=== PATIENT | female | born 1945 | race Caucasian/White ===

== ENCOUNTER 2018-04-13 12:30 | Inpatient (IN) | payer MEDICARE, BC ==
[~2018-04-13] VITALS: Ht 165.1 cm; Wt 65.0 kg
[~2018-04-13 12:30] MED LIST: ACAR50TA3 PO; ALBU18HF2 INH; BACL10TA PO; EST1T PO; FLUC100T9 PO; HYDR-4383 PO; IPRA3AMP31 IH; MAGN400C PO; OMEP-50 PO; PRED10TA PO; SERT100T PO; SIMV20TA5 PO; SPIR25TA5 PO; SYN0.088T PO; THEO300T22 PO; TIOT4MIS2 PO; TRAZ150T78 PO
[2018-04-13 13:12] LABS: BASOPHILS % (AUTO) 0.4 % (0-1); EOSINOPHILS # (AUTO) 0.1 X10'3 (0-0.9); EOSINOPHILS % (AUTO) 1.7 % (0-6); HEMATOCRIT 38.6 % (35.0-45.0); HEMOGLOBIN 12.8 g/dl (12.0-16.0); LYMPHOCYTES # (AUTO) 2.2 X10'3 (1.1-4.8); LYMPHOCYTES % (AUTO) 28.5 % (21-51); MEAN CORPUSCULAR HEMOGLOBIN 29.4 PG (27.0-31.0); MEAN CORPUSCULAR VOLUME 88.9 FL (78-98); MEAN PLATELET VOLUME 8.8 FL (7.4-10.4); MONOCYTES # (AUTO) 0.5 X10'3 (0-0.9); NEUTROPHILS # (AUTO) 4.9 X10'3 (1.8-7.7); NEUTROPHILS % (AUTO) 63.4 % (42-75); PLATELET COUNT 223 X10'3 (140-440); RED BLOOD COUNT 4.35 X10'6 (4.20-5.60); RED CELL DISTRIBUTION WIDTH 15.1 % (11.5-14.5); WHITE BLOOD COUNT 7.7 X10'3 (4.5-11.0)
[2018-04-13] MEDS ORDERED: ondansetron/PF 4mg/2ml inj IV ONE (13:20)
[2018-04-13] MEDS ORDERED: morphine 4 MG/ML inj SYRINge IV ONE (13:20)
[2018-04-13 13:32] LABS: ALANINE AMINOTRANSFERASE 19 U/L (12-78); ALBUMIN 3.3 G/DL (3.4-5.0); ALKALINE PHOSPHATASE 90 IU/L (46-116); ANION GAP 7 (8-16); ASPARTATE AMINO TRANSFERASE 19 U/L (10-37); BILIRUBIN,TOTAL 0.5 MG/DL (0.1-1.0); BLOOD UREA NITROGEN 18 MG/DL (7-18); BUN/CREATININE RATIO 20.2 (6.6-38.0); CALCIUM 8.7 MG/DL (8.5-10.1); CHLORIDE 101 MMOL/L (99-107); CREATININE 0.89 MG/DL (0.40-0.90); GLUCOSE 113 MG/DL (70-104); SODIUM 139 MMOL/L (135-145); TOTAL CARBON DIOXIDE 31.3 MMOL/L (24-32); TOTAL PROTEIN 6.6 G/DL (6.4-8.2); eGFR 63 ML/MIN
--- NOTE | 2018-04-13 13:55 | NUR ---
MEDICATED PT WITH ZOFRAN AND MORPHINE PER ORDERS, PT HAVING INCREASED EPIGASTRIC PRESSURE, INFORMED PT HER TROPONIN WAS NEGATIVE, WILL INFORM PROVIDER, DR ALBERT INFORMED AND WILL SPEAK WITH PT.
[2018-04-13] MEDS ORDERED: HYDR-4383 PO (14:11)
[2018-04-13] MEDS ORDERED: FLUC100T PO (14:15)
[2018-04-13] MEDS ORDERED: iohexol 350MG/ML 100ml bottle IV ONE (14:37)
--- NOTE | 2018-04-13 15:01 | NUR ---
pt to CTA
--- NOTE | 2018-04-13 15:10 | NUR ---
back from CTA
[2018-04-13] MEDS ORDERED: magnesium 4gm in 100ml NS 100 ML IV PRN (16:00)
[2018-04-13] MEDS ORDERED: potassium Cl 40MEQ/NS 500ml 500 ML IV PRN ×2 (16:00)
[2018-04-13] MEDS ORDERED: acetaminophen 325mg tablet PO PRN (16:00)
[2018-04-13] MEDS ORDERED: ondansetron/PF 4mg/2ml inj IV PRN (16:00)
[2018-04-13] MEDS ORDERED: potassium Cl 20 mEq SR tablet PO PRN ×2 (16:00)
[2018-04-13] MEDS ORDERED: HYDROcodone/acetaminophen 5mg/325mg tablet PO PRN (16:00)
[2018-04-13] MEDS ORDERED: magnesium 2GM in 50ml NS 50 ML IV PRN (16:00)
[2018-04-13] MEDS ORDERED: magnesium Cl slow-release 64mg tablet PO PRN (16:00)
[2018-04-13] MEDS ORDERED: albuterol 2.5 MG/3 ML nebule NEB PRN (16:40)
[2018-04-13] MEDS ORDERED: fluconazole 100mg tablet PO PRN (16:40)
[2018-04-13] MEDS ORDERED: ipratropium/albuterol 3ml nebule IH PRN (16:40)
--- NOTE | 2018-04-13 16:41 | NUR ---
Paged Dr. Hassan to change PT from a DNR to full code per the request of PASCALE Esteban
[2018-04-13] MEDS ORDERED: ipratropium/albuterol 3ml nebule NEB PRN (17:10)
--- NOTE | 2018-04-13 18:24 | NUR ---
report to PASCALE rodrigez
[2018-04-13] MEDS ORDERED: ipratropium/albuterol 3ml nebule NEB SCH (19:00)
[2018-04-13] MEDS ORDERED: ipratropium 0.5 MG/2.5ML nebule IH SCH (19:00)
--- NOTE | 2018-04-13 19:15 | NUR ---
SPOKE TO PT ABOUT WHEN SHE MAY BE ADMITTED UPSTAIRS. ADVISED PT THAT OF RIGHT NOW WE DO NOT HAVE THE NURSING STAFF OR BED TO BE ABLE TO GET HER UPSTAIRS. PT WOULD LIKE TO LEAVE AND GO HOME. ADVISED PT THAT I WOULD INFORM DR ALBERT AND HOSPITALIST MISTY.
--- NOTE | 2018-04-13 19:24 | NUR ---
DR ALBERT AWARE OF PT WANTING TO AMA HERSELF, NOW WAITING TO HEAR FROM HOSPITALIST MISTY.
[2018-04-13 19:33] VITALS: BP 101/49
[2018-04-13] MEDS ORDERED: pantoprazole 40 MG vial IV SCH (20:00)
[2018-04-13] MEDS ORDERED: methylPREDNISolone sod succ/PF 40mg inj. IV SCH (20:00)
--- NOTE | 2018-04-13 20:37 | NUR ---
SPOKE TO DR JAY REGARDING PT WANTING TO AMA HERSELF, DR JAY AWARE OF SITUATION AND ADVISED TO FILL OUT AMA PAPERWORK.
[2018-04-13] MEDS ORDERED: baclofen 10mg tablet PO SCH (21:00)
[2018-04-13] MEDS ORDERED: sertraline 50mg tablet PO SCH (21:00)
[2018-04-13] MEDS ORDERED: traZODone 150mg tablet PO SCH (21:00)
[2018-04-13] MEDS ORDERED: atorvastatin 20mg tablet PO SCH (21:00)
[2018-04-14] MEDS ORDERED: levoTHYROXINE 100mcg tablet PO SCH (07:00)
[2018-04-14] MEDS ORDERED: pantoprazole 40 MG vial IV SCH (08:00)
[2018-04-14] MEDS ORDERED: spironolactone 25 MG tablet PO SCH (08:00)
[2018-04-14] MEDS ORDERED: theophylline anhydrous 100mg ER capsule 24-hour PO SCH (08:00)
[2018-04-14] MEDS ORDERED: estradiol 1mg tablet PO SCH (08:00)
[2018-04-14] MEDS ORDERED: K and/or MAG REPLACEMENT MC SCH (08:00)
== END 2018-04-13 20:55 | disposition left against medical advice (07) | DRG 192 ==
LOC: ER 12:30 → ED HOLD 15:57
PROVIDERS: ADMIT Internal Medicine; ATTEND Internal Medicine
PROC: B3201ZZ Computerized Tomography (CT Scan) of Thoracic Aorta using Low Osmolar Contrast (ICD-10-PCS; principal; 2018-04-13)
DX: J44.1 Chronic obstructive pulmonary disease with (acute) exacerbation (principal); R07.89 Other chest pain; E03.9 Hypothyroidism, unspecified; E78.00 Pure hypercholesterolemia, unspecified; E78.5 Hyperlipidemia, unspecified; I10 Essential (primary) hypertension; F32.9 Major depressive disorder, single episode, unspecified; K21.9 Gastro-esophageal reflux disease without esophagitis; G47.00 Insomnia, unspecified; Z53.21 Procedure and treatment not carried out due to patient leaving prior to being seen by health care provider; G89.29 Other chronic pain; Z82.49 Family history of ischemic heart disease and other diseases of the circulatory system; Z87.891 Personal history of nicotine dependence; Z90.49 Acquired absence of other specified parts of digestive tract; Z90.710 Acquired absence of both cervix and uterus; Z88.1 Allergy status to other antibiotic agents; Z88.0 Allergy status to penicillin; Z88.8 Allergy status to other drugs, medicaments and biological substances; Z87.01 Personal history of pneumonia (recurrent); Z79.899 Other long term (current) drug therapy
CPT/HCPCS: 36415; 71045; 71275; 80053; 83735; 83880; 84484; 85025; 93005; 94760; 96374; 96375; 99285; C9113; G0378; J2270; J2405; J2920; Q9967